=== PATIENT | male | born 1960 | race Caucasian/White ===

== ENCOUNTER 2021-07-19 22:49 | Emergency (ER) | payer SELFPAY ==
[~2021-07-19] VITALS: Ht 167.6 cm; Wt 90.7 kg
== END 2021-07-19 23:49 | disposition home or self-care (01) ==
LOC: ER 22:49
DX: U07.1 COVID-19 (principal)
CPT/HCPCS: 99283

== ENCOUNTER 2021-07-26 05:42 | Emergency (ER) | payer SELFPAY ==
[~2021-07-26] VITALS: Ht 172.7 cm; Wt 90.7 kg
[~2021-07-26 05:42] MED LIST: BENZ100A PO; GUAI600T33 PO; ONDA4 PO
== END 2021-07-26 06:17 | disposition left against medical advice (07) ==
LOC: ER 05:42
DX: Z53.21 Procedure and treatment not carried out due to patient leaving prior to being seen by health care provider (principal)

== ENCOUNTER 2021-07-28 19:22 | Emergency (ER) | payer OTHER ==
[~2021-07-28] VITALS: Ht 172.7 cm; Wt 90.7 kg
[2021-07-28 19:59] LABS: BASOPHILS ABSOLUTE AUTO 0.02 K/mm3 (0.00-0.23); BASOPHILS PERCENT AUTO 0 % (0-2); EOSINOPHILS ABSOLUTE AUTO 0.01 K/mm3 (0.00-0.68); EOSINOPHILS PERCENT AUTO 0 % (0-6); Hematocrit 39.5 % (37.0-53.0); Hemoglobin 13.8 g/dL (13.5-17.5); IMMATURE GRAN ABSOLUTE AUTO 0.11 K/mm3 (0.00-0.10); IMMATURE GRAN PERCENT AUTO 1 % (0-1); LYMPHOCYTES ABSOLUTE AUTO 0.89 K/mm3 (0.84-5.20); LYMPHOCYTES PERCENT AUTO 10 % (21-46); MONOCYTES ABSOLUTE AUTO 0.93 K/mm3 (0.16-1.47); MONOCYTES PERCENT AUTO 11 % (4-13); Mean Corpuscular HGB 30.6 pg (26.0-34.0); Mean Corpuscular HGB Conc 34.9 g/dL (31.5-36.5); Mean Corpuscular Volume 88 fL (80-100); Mean Platelet Volume 9.1 fL (9.1-12.4); NEUTROPHILS ABSOLUTE AUTO 6.69 K/mm3 (1.96-9.15); NEUTROPHILS PERCENT AUTO 77 % (41-73); Platelet Count 406 K/mm3 (150-400); RDW Coefficient Variation 12.1 % (11.7-14.2); RDW Standard Deviation 39.4 fL (35.1-46.3); Red Blood Cell Count 4.51 M/mm3 (4.30-5.90); White Blood Cell Count 8.65 K/mm3 (4.00-11.30)
[2021-07-28 20:19] LABS: Alanine Aminotransfer (ALT/SGP 24 U/L (12-78); Albumin, Blood 2.8 g/dL (3.4-5.0); Albumin/Globulin Ratio 0.6 (0.8-1.8); Alk Phos 97 U/L (50-136); Anion Gap 6 mmol/L (6-16); Aspartate Aminotrans (AST/SGOT 23 U/L (12-37); Bilirubin, Total 1.3 mg/dL (0.1-1.0); Blood Urea Nitrogen 10 mg/dL (8-24); Bun/Creatinine Ratio 14.3 (12.0-20.0); CO2, Blood 32 mmol/L (21-32); Calcium, Blood 8.5 mg/dL (8.5-10.1); Chloride, Blood 95 mmol/L (98-108); Globulin, Blood 4.4 g/dL (2.2-4.0); Glomerular Filtration Rate >60 (60-); Glucose, Blood 120 mg/dL (70-99); Potassium, Blood 3.5 mmol/L (3.5-5.5); Sodium, Blood 133 mmol/L (136-145); Total Protein, Blood 7.2 g/dL (6.4-8.2)
[2021-07-28 23:15] LABS: Troponin I <0.015 ng/mL (0.000-0.040)
[2021-07-29] MEDS ORDERED: DEXA4 PO (00:05)
== END 2021-07-29 00:58 | disposition home or self-care (01) ==
LOC: ER 19:22
PROVIDERS: Physician Assistant
DX: U07.1 COVID-19 (principal); J12.82 Pneumonia due to coronavirus disease 2019; I25.2 Old myocardial infarction
CPT/HCPCS: 36415; 71045; 80053; 84484; 85025; 93005; 93010; 96361; 96374; 99285-25; A9270; J1100; J7030

== ENCOUNTER 2024-11-14 08:40 | Day surgery (SDC) | payer OTHER ==
[2024-11-14] VITALS (9 sets, daily range): BP systolic 91–128; BP diastolic 62–91
[~2024-11-14] VITALS: Ht 172.7 cm; Wt 92.0 kg
[~2024-11-14 08:40] MED LIST changes: +ATOR20 PO; +Aspir 8181 MG PO; +DEXA4 PO; +DOXA4 PO; +LEVSOD25 PO; +METO25ER PO; +NITR.4SL SL; +Prinivil10 MG PO
[2024-11-14] MEDS ORDERED: NS 1,000 ML IV ONE ×2 (10:44→11:13)
[2024-11-14] MEDS ORDERED: NS 250 ML IV ONE (10:44)
[2024-11-14] MEDS ORDERED: Nitroglycerin 2 MG/20 ML BTL ONE (10:44)
[2024-11-14] MEDS ORDERED: Verapamil HCL 2.5 MG/ML 2ML Injection ONE (10:44)
[2024-11-14] MEDS ORDERED: Heparin Sodium 1000 Units/ML 10ML MDV ONE (10:44)
[2024-11-14] MEDS ORDERED: Midazolam HCl 1MG / ML 2ML Vial ONE (11:13)
[2024-11-14] MEDS ORDERED: FentaNYL Citrate 50 MCG/ML 2 ML Injection ONE (11:13)
[2024-11-14] MEDS ORDERED: Phenylephrine HCl 100 MCG/ML-NS 10MLSYR (1MG/10ML) ONE (11:41)
--- NOTE | 2024-11-14 12:15 | NUR ---
PATIENT ARRIVED BACK TO RECOVERY ROOM SITTING UPRIGHT IN RECLINER, TR BAND FULLY INFLATED. SITE C/D/I SOFT/NONTENDER, NO EVIDENCE OF BLEEDING. VSS ON RA. PRESENT AT BEDSIDE DISCUSSING ANGIOGRAM RESULTS.
--- NOTE | 2024-11-14 12:31 | NUR ---
PATIENT TOLERATING PO INTAKE WELL. R RADIAL TR BAND FULLY INFLATED. SITE C/D/I SOFT/NONTENDER, NO EVIDENCE OF BLEEDING. PATIENT DENYING ANY PAIN. VSS ON RA.
--- NOTE | 2024-11-14 13:15 | NUR ---
INITIAL 2 CC OF AIR REMOVED FROM RIGHT RADIAL TR BAND. SITE C/D/I SOFT/NONTENDER, NO EVIDENCE OF BLEEDING. VSS ON RA. PATIENT TOLERATING PO INTAKE WELL.
--- NOTE | 2024-11-14 13:49 | NUR ---
ALL AIR REMOVED FROM RIGHT RADIAL TR BAND. SITE C/D/I SOFT/NONTENDER, NO EVIDENCE OF BLEEDING. VSS ON RA. PATIENT RESTING COMFORTABLY IN RECLINER. PATIENT TOLERATING PO INTAKE WELL. PATIENT DENYING ANY PAIN.
--- NOTE | 2024-11-14 14:18 | NUR ---
DISCHARGE INSTRUCTIONS REVIEWED WITH PATIENT. ALL QUESTIONS WERE ANSWERED. PIV REMOVED WITHOUT DIFFIUCLTY, CATHETER INTACT. TR BAND REMVOED, RIGHT RADIAL SITE C/D/I SOFT/NONTENDER, GABRIELLA VIDENCE OF BLEEDING. ARM BOARD AND CLOTH DOT IN PLACE. PATIENT GETTING DRESSED WITHOUT DIFFICULTY
--- NOTE | 2024-11-14 14:25 | NUR ---
PATIENT WHEELED TO HOSPITAL ENTRANCE. SISTER ABLE TO PROVIDE TRANSPORTATION HOME. ALL PATIENT BELONGINGS AND PAPERWORK LEFT WITH PATIENT.
== END 2024-11-14 14:25 | disposition home or self-care (01) ==
LOC: MHTC 08:40
DX: I25.118 Atherosclerotic heart disease of native coronary artery with other forms of angina pectoris (principal); R94.39 Abnormal result of other cardiovascular function study; I25.2 Old myocardial infarction; I10 Essential (primary) hypertension; Z79.82 Long term (current) use of aspirin; Z79.899 Other long term (current) drug therapy
CPT/HCPCS: 76937; 93454; 99152; 99153; C1769; C1887; C1894; J1644; J2250; J2371; J3010; J7030; J7050; Q9967